=== PATIENT | male | born 1970 | race Caucasian/White ===

== ENCOUNTER 2017-06-15 13:32 | Inpatient (IN) | payer OTHER ==
[~2017-06-15] VITALS: Ht 180.3 cm; Wt 80.0 kg
[2017-06-15 14:41] LABS: Basophils # (auto) 0 uL; Basophils % (auto) 0.2 % (0.0-2.0); CONDITION Y; Eosinophils # (auto) 0 uL; Eosinophils % (auto) 0.3 % (0.0-7.0); Hematocrit 50.1 % (41.0-53.0); Hemoglobin 16.7 g/dL (13.5-17.5); Lymphocytes # (auto) 1.7 uL; Lymphocytes % (auto) 15.5 % (10.0-50.0); Mean Corpuscular Hemoglobin 31.1 pg (28.0-32.0); Mean Corpuscular Hgb Conc. 33.3 g/dL (32.0-36.0); Mean Corpuscular Volume 93.4 fL (80.0-100.0); Mean Platelet Volume 7.8 fL (7.4-10.4); Monocytes # (auto) 0.9 uL; Monocytes % (auto) 8.4 % (0.0-12.0); Neutrophils # (auto) 8.4 uL; Neutrophils % (auto) 75.6 % (37.0-80.0); Platelet Count (auto) 241 10^3/uL (140-450); Red Cell Distribution Width 13.3 % (11.6-16.0); White Blood Cell 11.2 10^3/uL (4.4-10.8)
[2017-06-15 14:43] LABS: Albumin 4.4 g/dL (3.4-5.0); BUN/Creatinine Ratio 15.5; Calcium 9.8 mg/dL (8.5-10.1); Potassium 5.3 mmol/L (3.5-5.1)
[2017-06-15 14:57] LABS: Bilirubin, Total 0.6 mg/dL (0.2-1.0); Total Protein 8.7 g/dL (6.4-8.2)
[2017-06-15] MEDS ORDERED: ALBUTEROL SULF 2.5 MG/0.5ML(0.5%) NEB SOLN NEB ONE (15:00)
[2017-06-15] MEDS ORDERED: MORPHINE SULFATE 4 MG/ML SYRG IV ONE (15:45)
[2017-06-15] MEDS ORDERED: NITROGLYCERIN 0.4 MG SL TAB SL PRN ×2 (15:45)
[2017-06-15] MEDS ORDERED: ACETAMINOPHEN 325 MG TAB PO PRN (15:45)
[2017-06-15] MEDS ORDERED: ONDANSETRON HCL 4 MG/2 ML VIAL IV ONE (15:45)
[2017-06-15] MEDS ORDERED: ONDANSETRON HCL 4 MG/2 ML VIAL IV PRN (15:45)
[2017-06-15] MEDS ORDERED: ALUM & MAG HYDROX-SIMETH LIQ(MAALOX) 30 ML PO ONE (15:45)
[2017-06-15] MEDS ORDERED: ASPirin 81 mg TAB PO ONE ×2 (15:45→17:00)
[2017-06-15] MEDS ORDERED: SODIUM CHLORIDE 0.9% 1,000 ML IV ONE (15:45)
[2017-06-15] MEDS ORDERED: cefTRIAXone 1GM/50ML D5W 50 ML IV ONE (15:45)
[2017-06-15] MEDS ORDERED: LORazepam 0.5 MG TAB PO PRN (15:45)
[2017-06-15] MEDS ORDERED: ZOLPIDEM TARTRATE 5 MG TAB PO PRN (15:45)
[2017-06-15] MEDS ORDERED: MORPHINE SULF INJ 2 MG/ML SYRINGE 1ML IV PRN ×2 (15:45)
[2017-06-15 16:23] LABS: B-Type Natriuretic Peptide 143.23 pg/mL (0-100)
[2017-06-15 16:41] LABS: Temperature: 23.1 C (20.0-25.0)
[2017-06-15] MEDS ORDERED: CLOPIDOGREL BISULFATE 75 MG TAB PO ONE (17:00)
[2017-06-15] MEDS ORDERED: DOCUSATE SOD 100 MG CAP PO ONE (17:00)
[2017-06-15 17:27] VITALS: BP 124/77
[2017-06-15] MEDS: IPRATROPIUM BROM 0.5 MG/2.5ML INH SOL NEB SCH (18:34)
[2017-06-15] MEDS: ALBUTEROL SULF 2.5 MG/0.5ML(0.5%) NEB SOLN NEB SCH (18:35)
[2017-06-15 20:00] VITALS: BP 123/65
[2017-06-15] MEDS: CARVEDILOL 3.125 MG TAB PO SCH (21:57)
[2017-06-15] MEDS: SODIUM CHLOR 0.9% PF (SALINE LOCK) 10ML VIAL IV SCH (21:58)
[2017-06-15] MEDS: ENALAPRIL MALEATE 2.5 MG TAB PO SCH (21:58)
[2017-06-15] MEDS: ATORVASTATIN 20 MG TAB PO SCH (21:58)
[2017-06-15 22:01] VITALS: BP 124/77
[2017-06-15 23:04] VITALS: BP 123/65
[2017-06-16] MEDS: IPRATROPIUM BROM 0.5 MG/2.5ML INH SOL NEB SCH ×4 (01:12→19:36)
[2017-06-16] MEDS: ALBUTEROL SULF 2.5 MG/0.5ML(0.5%) NEB SOLN NEB SCH ×4 (01:12→19:36)
[2017-06-16 05:09] VITALS: BP 108/68
[2017-06-16] MEDS: SODIUM CHLOR 0.9% PF (SALINE LOCK) 10ML VIAL IV SCH ×3 (05:15→22:28)
[2017-06-16 07:00] LABS: Basophils # (auto) 0 uL; Basophils % (auto) 0.3 % (0.0-2.0); CONDITION Y; Eosinophils # (auto) 0.2 uL; Eosinophils % (auto) 1.5 % (0.0-7.0); Hemoglobin 15.3 g/dL (13.5-17.5); Lymphocytes # (auto) 2.5 uL; Lymphocytes % (auto) 24.9 % (10.0-50.0); Mean Corpuscular Hemoglobin 31.7 pg (28.0-32.0); Mean Corpuscular Hgb Conc. 33.9 g/dL (32.0-36.0); Mean Corpuscular Volume 93.4 fL (80.0-100.0); Mean Platelet Volume 7.8 fL (7.4-10.4); Monocytes # (auto) 0.9 uL; Monocytes % (auto) 8.5 % (0.0-12.0); Neutrophils # (auto) 6.5 uL; Neutrophils % (auto) 64.8 % (37.0-80.0); Platelet Count (auto) 220 10^3/uL (140-450); Red Cell Distribution Width 13.6 % (11.6-16.0); White Blood Cell 10.1 10^3/uL (4.4-10.8)
[2017-06-16 07:31] LABS: Albumin 3.6 g/dL (3.4-5.0); BUN/Creatinine Ratio 19.8; Bilirubin, Total 0.6 mg/dL (0.2-1.0); Calcium 8.6 mg/dL (8.5-10.1); Magnesium 2.5 mg/dL (1.6-2.6); Potassium 4.4 mmol/L (3.5-5.1); Total Protein 7.4 g/dL (6.4-8.2)
[2017-06-16 08:30] VITALS: BP 118/69
[2017-06-16] MEDS ORDERED: CLOPIDOGREL BISULFATE 75 MG TAB PO SCH (10:00)
[2017-06-16] MEDS: ENALAPRIL MALEATE 2.5 MG TAB PO SCH ×2 (10:00→22:30)
[2017-06-16] MEDS: CARVEDILOL 3.125 MG TAB PO SCH ×2 (10:00→22:29)
[2017-06-16] MEDS: DOCUSATE SOD 100 MG CAP PO SCH (10:00)
[2017-06-16] MEDS: ASPirin 81 mg TAB PO SCH (10:48)
[2017-06-16] MEDS: cefTRIAXone 1GM/50ML D5W 50 ML IV SCH (10:48)
[2017-06-16 12:30] VITALS: BP 122/59
[2017-06-16 12:32] LABS: Prothrombin Time 10.9 sec (9.37-12.3)
[2017-06-16] MEDS ORDERED: IOHEXOL 350 MG/ML 100ML IJ ONE (13:40)
[2017-06-16] MEDS ORDERED: ENOXAPARIN SOD 100 MG/1 ML SYRINGE SC ONE (15:15)
[2017-06-16] MEDS ORDERED: ENOXAPARIN SOD 80 MG/0.8ML SYRINGE SC SCH (15:15)
[2017-06-16 16:19] VITALS: BP 107/65
[2017-06-16 21:26] VITALS: BP 103/64
[2017-06-16] MEDS: ATORVASTATIN 20 MG TAB PO SCH (22:29)
[2017-06-16] MEDS: ENOXAPARIN SOD 80 MG/0.8ML SYRINGE SC SCH (22:30)
[2017-06-17] MEDS: ALBUTEROL SULF 2.5 MG/0.5ML(0.5%) NEB SOLN NEB SCH ×4 (00:27→18:18)
[2017-06-17] MEDS: IPRATROPIUM BROM 0.5 MG/2.5ML INH SOL NEB SCH ×4 (00:27→18:18)
[2017-06-17 05:00] VITALS: BP 98/67
[2017-06-17] MEDS: SODIUM CHLOR 0.9% PF (SALINE LOCK) 10ML VIAL IV SCH ×3 (06:06→22:20)
[2017-06-17 07:03] LABS: Partial Thromboplastin Time 31.7 sec (22.64-33.71); Prothrombin Time 10.9 sec (9.37-12.3)
[2017-06-17] MEDS ORDERED: LIDOCAINE 2%HCL (LOCAL ANESTH.) INJ 20ML MDV ONE (07:27)
[2017-06-17] MEDS ORDERED: IODIXANOL 320MG/ML 100ML BTL IV ONE (07:27)
[2017-06-17] MEDS ORDERED: HEPARIN IN NS 1000Units/500mL 0 ML ONE ×2 (07:27→07:31)
[2017-06-17 08:00] VITALS: BP 120/71
[2017-06-17 09:00] VITALS: BP 120/71
[2017-06-17] MEDS: NICOTINE 21MG/24 HR TOPICAL PATCH TD SCH (10:00)
[2017-06-17] MEDS: CARVEDILOL 3.125 MG TAB PO SCH ×2 (10:00→22:21)
[2017-06-17] MEDS: ENALAPRIL MALEATE 2.5 MG TAB PO SCH ×2 (10:00→22:00)
[2017-06-17] MEDS: cefTRIAXone 1GM/50ML D5W 50 ML IV SCH (10:37)
[2017-06-17] MEDS: DOCUSATE SOD 100 MG CAP PO SCH (10:38)
[2017-06-17] MEDS: ASPirin 81 mg TAB PO SCH (10:38)
[2017-06-17] MEDS: ENOXAPARIN SOD 80 MG/0.8ML SYRINGE SC SCH ×2 (10:56→22:21)
[2017-06-17 12:45] VITALS: BP 109/68
[2017-06-17 17:08] VITALS: BP 115/68
[2017-06-17 20:00] VITALS: BP 114/66
[2017-06-17] MEDS: ATORVASTATIN 20 MG TAB PO SCH (22:21)
[2017-06-18] VITALS (7 sets, daily range): BP systolic 94–112; BP diastolic 60–68
[2017-06-18] MEDS: IPRATROPIUM BROM 0.5 MG/2.5ML INH SOL NEB SCH ×4 (06:43→18:21)
[2017-06-18] MEDS: ALBUTEROL SULF 2.5 MG/0.5ML(0.5%) NEB SOLN NEB SCH ×4 (06:43→18:21)
[2017-06-18] MEDS: SODIUM CHLOR 0.9% PF (SALINE LOCK) 10ML VIAL IV SCH ×3 (07:31→21:53)
[2017-06-18] MEDS: cefTRIAXone 1GM/50ML D5W 50 ML IV SCH (08:42)
[2017-06-18 09:07] LABS: Protein S Antigen Free 83 % (57-157); Proten S Antigen Total 125 % (60-150)
[2017-06-18] MEDS: ASPirin 81 mg TAB PO SCH (09:51)
[2017-06-18] MEDS: DOCUSATE SOD 100 MG CAP PO SCH (09:51)
[2017-06-18] MEDS: ENOXAPARIN SOD 80 MG/0.8ML SYRINGE SC SCH (09:51)
[2017-06-18] MEDS: CARVEDILOL 3.125 MG TAB PO SCH ×2 (09:54→21:53)
[2017-06-18] MEDS: ENALAPRIL MALEATE 2.5 MG TAB PO SCH ×2 (09:55→21:11)
[2017-06-18] MEDS: NICOTINE 21MG/24 HR TOPICAL PATCH TD SCH (10:00)
[2017-06-18] MEDS ORDERED: APIXABAN 5 MG TAB PO SCH (10:30)
[2017-06-18] MEDS ORDERED: IOHEXOL 350 MG/ML 100ML IJ ONE (15:01)
[2017-06-18 16:11] LABS: Basophils # (auto) 0.1 uL; Basophils % (auto) 0.8 % (0.0-2.0); CONDITION Y; Eosinophils # (auto) 0.1 uL; Hematocrit 41.8 % (41.0-53.0); Hemoglobin 14.4 g/dL (13.5-17.5); Lymphocytes # (auto) 1.4 uL; Lymphocytes % (auto) 14.9 % (10.0-50.0); Mean Corpuscular Hemoglobin 31.6 pg (28.0-32.0); Mean Corpuscular Hgb Conc. 34.4 g/dL (32.0-36.0); Mean Platelet Volume 7.6 fL (7.4-10.4); Monocytes # (auto) 0.5 uL; Monocytes % (auto) 5.8 % (0.0-12.0); Neutrophils # (auto) 7.2 uL; Neutrophils % (auto) 77.5 % (37.0-80.0); Platelet Count (auto) 272 10^3/uL (140-450); Red Cell Distribution Width 13.4 % (11.6-16.0); White Blood Cell 9.2 10^3/uL (4.4-10.8)
[2017-06-18 16:29] LABS: Albumin 3.6 g/dL (3.4-5.0); BUN/Creatinine Ratio 16.1; Bilirubin, Total 0.4 mg/dL (0.2-1.0); Calcium 9.2 mg/dL (8.5-10.1); Potassium 4.1 mmol/L (3.5-5.1); Total Protein 7.7 g/dL (6.4-8.2)
[2017-06-18 16:36] LABS: INR 1.02 (0.9-1.15); Prothrombin Time 11.1 sec (9.37-12.3)
[2017-06-18] MEDS ORDERED: HEPARIN SODIUM (PORCINE) 5000 UNITS/ML 1ML VIAL IV ONE (18:45)
[2017-06-18 19:55] LABS: Basophils # (auto) 0 uL; Basophils % (auto) 0.3 % (0.0-2.0); CONDITION Y; Eosinophils # (auto) 0.1 uL; Eosinophils % (auto) 0.7 % (0.0-7.0); Hematocrit 41.8 % (41.0-53.0); Hemoglobin 14.3 g/dL (13.5-17.5); Lymphocytes # (auto) 1.5 uL; Mean Corpuscular Hemoglobin 31.6 pg (28.0-32.0); Mean Corpuscular Hgb Conc. 34.2 g/dL (32.0-36.0); Mean Corpuscular Volume 92.5 fL (80.0-100.0); Mean Platelet Volume 7.7 fL (7.4-10.4); Monocytes # (auto) 0.6 uL; Neutrophils # (auto) 10.4 uL; Platelet Count (auto) 294 10^3/uL (140-450); Red Cell Distribution Width 13.3 % (11.6-16.0); White Blood Cell 12.7 10^3/uL (4.4-10.8)
[2017-06-18 20:10] LABS: INR 0.99 (0.9-1.15); Partial Thromboplastin Time 31.6 sec (22.64-33.71); Prothrombin Time 10.8 sec (9.37-12.3)
[2017-06-18] MEDS: HEPARIN DRIP/D5W 100UNITS/ML 250 ML IV SCH (20:10)
[2017-06-18] MEDS: ATORVASTATIN 20 MG TAB PO SCH (21:52)
[2017-06-19] VITALS (7 sets, daily range): BP systolic 105–118; BP diastolic 61–73
[2017-06-19 03:14] LABS: INR 0.98 (0.9-1.15); Partial Thromboplastin Time 49.6 sec (22.64-33.71); Prothrombin Time 10.7 sec (9.37-12.3)
[2017-06-19] MEDS: SODIUM CHLOR 0.9% PF (SALINE LOCK) 10ML VIAL IV SCH ×3 (06:04→22:28)
[2017-06-19] MEDS: ALBUTEROL SULF 2.5 MG/0.5ML(0.5%) NEB SOLN NEB SCH ×4 (06:07→20:03)
[2017-06-19] MEDS: IPRATROPIUM BROM 0.5 MG/2.5ML INH SOL NEB SCH ×4 (06:08→20:03)
[2017-06-19 08:39] LABS: INR 1.01 (0.9-1.15); Partial Thromboplastin Time 38.1 sec (22.64-33.71)
[2017-06-19] MEDS: ENALAPRIL MALEATE 2.5 MG TAB PO SCH ×2 (10:00→22:30)
[2017-06-19] MEDS: CARVEDILOL 3.125 MG TAB PO SCH ×2 (10:00→22:30)
[2017-06-19] MEDS: NICOTINE 21MG/24 HR TOPICAL PATCH TD SCH (10:00)
[2017-06-19] MEDS: DOCUSATE SOD 100 MG CAP PO SCH (10:00)
[2017-06-19] MEDS: ASPirin 81 mg TAB PO SCH (10:38)
[2017-06-19] MEDS: cefTRIAXone 1GM/50ML D5W 50 ML IV SCH (10:39)
[2017-06-19] MEDS: HEPARIN DRIP/D5W 100UNITS/ML 250 ML IV SCH (12:55)
[2017-06-19 15:29] LABS: Basophils # (auto) 0 uL; Basophils % (auto) 0.5 % (0.0-2.0); CONDITION Y; Eosinophils # (auto) 0.2 uL; Eosinophils % (auto) 1.5 % (0.0-7.0); Hematocrit 41.2 % (41.0-53.0); Hemoglobin 14.1 g/dL (13.5-17.5); Lymphocytes # (auto) 1.9 uL; Lymphocytes % (auto) 18.2 % (10.0-50.0); Mean Corpuscular Hemoglobin 31.8 pg (28.0-32.0); Mean Corpuscular Hgb Conc. 34.2 g/dL (32.0-36.0); Mean Corpuscular Volume 93.1 fL (80.0-100.0); Mean Platelet Volume 7.6 fL (7.4-10.4); Monocytes # (auto) 0.9 uL; Monocytes % (auto) 8.5 % (0.0-12.0); Neutrophils # (auto) 7.3 uL; Neutrophils % (auto) 71.3 % (37.0-80.0); Platelet Count (auto) 309 10^3/uL (140-450); Red Cell Distribution Width 13.2 % (11.6-16.0); White Blood Cell 10.3 10^3/uL (4.4-10.8)
[2017-06-19 15:46] LABS: INR 0.99 (0.9-1.15); Partial Thromboplastin Time 47.8 sec (22.64-33.71); Prothrombin Time 10.8 sec (9.37-12.3)
[2017-06-19] MEDS: ATORVASTATIN 20 MG TAB PO SCH (22:28)
[2017-06-20] VITALS (7 sets, daily range): BP systolic 100–109; BP diastolic 58–73
[2017-06-20] MEDS: HEPARIN DRIP/D5W 100UNITS/ML 250 ML IV SCH ×2 (05:41→22:17)
[2017-06-20] MEDS: IPRATROPIUM BROM 0.5 MG/2.5ML INH SOL NEB SCH ×4 (05:58→19:42)
[2017-06-20] MEDS: ALBUTEROL SULF 2.5 MG/0.5ML(0.5%) NEB SOLN NEB SCH ×4 (05:59→19:42)
[2017-06-20] MEDS: SODIUM CHLOR 0.9% PF (SALINE LOCK) 10ML VIAL IV SCH ×3 (05:59→22:05)
[2017-06-20] MEDS: cefTRIAXone 1GM/50ML D5W 50 ML IV SCH (08:20)
[2017-06-20] MEDS: DOCUSATE SOD 100 MG CAP PO SCH (09:06)
[2017-06-20] MEDS: NICOTINE 21MG/24 HR TOPICAL PATCH TD SCH ×2 (09:06→09:13)
[2017-06-20] MEDS: CARVEDILOL 3.125 MG TAB PO SCH ×2 (09:06→22:00)
[2017-06-20] MEDS: ASPirin 81 mg TAB PO SCH (09:06)
[2017-06-20] MEDS: ENALAPRIL MALEATE 2.5 MG TAB PO SCH ×2 (09:07→22:00)
[2017-06-20 10:01] LABS: Basophils # (auto) 0 uL; Basophils % (auto) 0.4 % (0.0-2.0); CONDITION Y; Eosinophils # (auto) 0.1 uL; Eosinophils % (auto) 1.2 % (0.0-7.0); Hemoglobin 14.6 g/dL (13.5-17.5); Lymphocytes # (auto) 1.4 uL; Lymphocytes % (auto) 14.8 % (10.0-50.0); Mean Corpuscular Hemoglobin 31.9 pg (28.0-32.0); Mean Corpuscular Hgb Conc. 34.1 g/dL (32.0-36.0); Mean Corpuscular Volume 93.6 fL (80.0-100.0); Mean Platelet Volume 7.5 fL (7.4-10.4); Monocytes # (auto) 0.5 uL; Monocytes % (auto) 5.6 % (0.0-12.0); Neutrophils # (auto) 7.4 uL; Platelet Count (auto) 318 10^3/uL (140-450); Red Cell Distribution Width 13.1 % (11.6-16.0); White Blood Cell 9.5 10^3/uL (4.4-10.8)
[2017-06-20 10:18] LABS: INR 1.01 (0.9-1.15); Partial Thromboplastin Time 56.8 sec (22.64-33.71)
[2017-06-20] MEDS: ATORVASTATIN 20 MG TAB PO SCH (22:07)
[2017-06-21] VITALS (7 sets, daily range): BP systolic 103–116; BP diastolic 56–68
[2017-06-21] MEDS: ALBUTEROL SULF 2.5 MG/0.5ML(0.5%) NEB SOLN NEB SCH ×4 (01:29→18:00)
[2017-06-21] MEDS: IPRATROPIUM BROM 0.5 MG/2.5ML INH SOL NEB SCH ×4 (01:29→18:00)
[2017-06-21] MEDS: SODIUM CHLOR 0.9% PF (SALINE LOCK) 10ML VIAL IV SCH ×3 (05:39→22:03)
[2017-06-21 05:48] LABS: Basophils # (auto) 0.1 uL; Basophils % (auto) 0.8 % (0.0-2.0); CONDITION Y; Eosinophils # (auto) 0.2 uL; Eosinophils % (auto) 2.1 % (0.0-7.0); Hemoglobin 14.5 g/dL (13.5-17.5); Lymphocytes # (auto) 2.5 uL; Lymphocytes % (auto) 26.5 % (10.0-50.0); Mean Corpuscular Hgb Conc. 34.5 g/dL (32.0-36.0); Mean Corpuscular Volume 92.7 fL (80.0-100.0); Mean Platelet Volume 7.5 fL (7.4-10.4); Monocytes # (auto) 0.7 uL; Neutrophils % (auto) 63.6 % (37.0-80.0); Platelet Count (auto) 340 10^3/uL (140-450); Red Cell Distribution Width 12.9 % (11.6-16.0); White Blood Cell 9.4 10^3/uL (4.4-10.8)
[2017-06-21 06:02] LABS: INR 0.98 (0.9-1.15); Partial Thromboplastin Time 64.6 sec (22.64-33.71); Prothrombin Time 10.7 sec (9.37-12.3)
[2017-06-21] MEDS: cefTRIAXone 1GM/50ML D5W 50 ML IV SCH (07:56)
[2017-06-21] MEDS: CARVEDILOL 3.125 MG TAB PO SCH ×2 (09:05→22:00)
[2017-06-21] MEDS: ASPirin 81 mg TAB PO SCH (09:05)
[2017-06-21] MEDS: ENALAPRIL MALEATE 2.5 MG TAB PO SCH ×2 (09:05→22:00)
[2017-06-21] MEDS: NICOTINE 21MG/24 HR TOPICAL PATCH TD SCH (09:06)
[2017-06-21] MEDS: DOCUSATE SOD 100 MG CAP PO SCH (09:06)
[2017-06-21] MEDS: HEPARIN DRIP/D5W 100UNITS/ML 250 ML IV SCH (12:39)
[2017-06-21] MEDS: ATORVASTATIN 20 MG TAB PO SCH (22:08)
[2017-06-22] VITALS (7 sets, daily range): BP systolic 104–121; BP diastolic 56–81
[2017-06-22] MEDS: SODIUM CHLOR 0.9% PF (SALINE LOCK) 10ML VIAL IV SCH ×3 (06:00→21:55)
[2017-06-22 06:31] LABS: INR 0.99 (0.9-1.15); Partial Thromboplastin Time 29.5 sec (22.64-33.71); Prothrombin Time 10.8 sec (9.37-12.3)
[2017-06-22] MEDS: IPRATROPIUM BROM 0.5 MG/2.5ML INH SOL NEB SCH ×4 (06:36→18:22)
[2017-06-22] MEDS: ALBUTEROL SULF 2.5 MG/0.5ML(0.5%) NEB SOLN NEB SCH ×4 (06:36→18:22)
[2017-06-22] MEDS: cefTRIAXone 1GM/50ML D5W 50 ML IV SCH (08:14)
[2017-06-22] MEDS ORDERED: HEPARIN SODIUM (PORCINE) 5000 UNITS/ML 1ML VIAL IV ONE (08:15)
[2017-06-22] MEDS: HEPARIN DRIP/D5W 100UNITS/ML 250 ML IV SCH (08:16)
[2017-06-22] MEDS: ENALAPRIL MALEATE 2.5 MG TAB PO SCH ×2 (09:23→21:55)
[2017-06-22] MEDS: NICOTINE 21MG/24 HR TOPICAL PATCH TD SCH (09:23)
[2017-06-22] MEDS: CARVEDILOL 3.125 MG TAB PO SCH ×2 (09:47→21:56)
[2017-06-22] MEDS: ASPirin 81 mg TAB PO SCH (09:48)
[2017-06-22] MEDS: DOCUSATE SOD 100 MG CAP PO SCH (09:48)
[2017-06-22 14:55] LABS: INR 1.05 (0.9-1.15); Prothrombin Time 11.5 sec (9.37-12.3)
[2017-06-22] MEDS ORDERED: HEPARIN DRIP/D5W 100UNITS/ML 250 ML IV SCH (18:45)
[2017-06-22] MEDS: ATORVASTATIN 20 MG TAB PO SCH (21:55)
[2017-06-23] MEDS: IPRATROPIUM BROM 0.5 MG/2.5ML INH SOL NEB SCH ×4 (00:15→19:35)
[2017-06-23] MEDS: ALBUTEROL SULF 2.5 MG/0.5ML(0.5%) NEB SOLN NEB SCH ×4 (00:15→19:35)
[2017-06-23 05:18] VITALS: BP 111/64
[2017-06-23] MEDS: SODIUM CHLOR 0.9% PF (SALINE LOCK) 10ML VIAL IV SCH ×3 (05:31→21:41)
[2017-06-23 05:38] LABS: Basophils # (auto) 0.1 uL; CONDITION Y; Eosinophils # (auto) 0.2 uL; Eosinophils % (auto) 2.6 % (0.0-7.0); Hematocrit 42.3 % (41.0-53.0); Hemoglobin 14.3 g/dL (13.5-17.5); Lymphocytes % (auto) 25.7 % (10.0-50.0); Mean Corpuscular Hemoglobin 31.6 pg (28.0-32.0); Mean Corpuscular Hgb Conc. 33.8 g/dL (32.0-36.0); Mean Corpuscular Volume 93.3 fL (80.0-100.0); Mean Platelet Volume 7.2 fL (7.4-10.4); Monocytes # (auto) 0.5 uL; Monocytes % (auto) 6.1 % (0.0-12.0); Neutrophils # (auto) 5.1 uL; Neutrophils % (auto) 64.6 % (37.0-80.0); Platelet Count (auto) 403 10^3/uL (140-450); Red Cell Distribution Width 13.2 % (11.6-16.0)
[2017-06-23 05:57] LABS: INR 1.04 (0.9-1.15); Prothrombin Time 11.3 sec (9.37-12.3)
[2017-06-23 06:08] LABS: Partial Thromboplastin Time 82.1 sec (22.64-33.71)
[2017-06-23] MEDS ORDERED: HEPARIN DRIP/D5W 100UNITS/ML 250 ML IV SCH (08:15)
[2017-06-23 09:41] VITALS: BP 99/56
[2017-06-23] MEDS: ENALAPRIL MALEATE 2.5 MG TAB PO SCH ×2 (10:00→21:36)
[2017-06-23] MEDS: CARVEDILOL 3.125 MG TAB PO SCH ×2 (10:00→21:36)
[2017-06-23] MEDS: DOCUSATE SOD 100 MG CAP PO SCH (10:16)
[2017-06-23] MEDS: NICOTINE 21MG/24 HR TOPICAL PATCH TD SCH (10:18)
[2017-06-23] MEDS: ASPirin 81 mg TAB PO SCH (10:18)
[2017-06-23 12:17] LABS: INR 1.02 (0.9-1.15); Partial Thromboplastin Time 60.2 sec (22.64-33.71); Prothrombin Time 11.1 sec (9.37-12.3)
[2017-06-23 12:46] VITALS: BP 102/62
[2017-06-23] MEDS ORDERED: APIXABAN 5 MG TAB PO SCH (15:55)
[2017-06-23 18:05] VITALS: BP 104/65
[2017-06-23 20:00] VITALS: BP 105/65
[2017-06-23] MEDS: APIXABAN 5 MG TAB PO SCH (21:41)
[2017-06-23] MEDS: ATORVASTATIN 20 MG TAB PO SCH (21:41)
[2017-06-23 22:00] VITALS: BP 105/65
[2017-06-24] MEDS: ALBUTEROL SULF 2.5 MG/0.5ML(0.5%) NEB SOLN NEB SCH ×4 (00:38→19:14)
[2017-06-24] MEDS: IPRATROPIUM BROM 0.5 MG/2.5ML INH SOL NEB SCH ×4 (00:38→19:14)
[2017-06-24 04:53] VITALS: BP 108/62
[2017-06-24] MEDS: SODIUM CHLOR 0.9% PF (SALINE LOCK) 10ML VIAL IV SCH ×3 (05:33→21:35)
[2017-06-24 08:36] VITALS: BP 111/61
[2017-06-24 08:48] LABS: INR 1.1 (0.9-1.15); Partial Thromboplastin Time 31.6 sec (22.64-33.71)
[2017-06-24] MEDS: ENALAPRIL MALEATE 2.5 MG TAB PO SCH ×3 (10:00→21:35)
[2017-06-24] MEDS: CARVEDILOL 3.125 MG TAB PO SCH ×3 (10:00→21:34)
[2017-06-24] MEDS: NICOTINE 21MG/24 HR TOPICAL PATCH TD SCH (10:00)
[2017-06-24] MEDS: DOCUSATE SOD 100 MG CAP PO SCH (10:23)
[2017-06-24] MEDS: APIXABAN 5 MG TAB PO SCH ×2 (10:24→21:35)
[2017-06-24] MEDS: ASPirin 81 mg TAB PO SCH (10:25)
[2017-06-24 12:54] VITALS: BP 98/61
[2017-06-24 17:00] VITALS: BP_SYST 103; BP_SYST 126; BP_DIAS 59; BP_DIAS 62
[2017-06-24] MEDS: ATORVASTATIN 20 MG TAB PO SCH (21:33)
[2017-06-24 22:20] VITALS: BP 119/59
[2017-06-25] VITALS (7 sets, daily range): BP systolic 100–119; BP diastolic 51–67
[2017-06-25] MEDS: IPRATROPIUM BROM 0.5 MG/2.5ML INH SOL NEB SCH ×4 (00:53→19:05)
[2017-06-25] MEDS: ALBUTEROL SULF 2.5 MG/0.5ML(0.5%) NEB SOLN NEB SCH ×4 (00:53→19:05)
[2017-06-25 06:17] LABS: Basophils # (auto) 0.1 uL; Basophils % (auto) 0.6 % (0.0-2.0); CONDITION Y; Eosinophils # (auto) 0.3 uL; Eosinophils % (auto) 3.1 % (0.0-7.0); Hematocrit 42.7 % (41.0-53.0); Hemoglobin 14.5 g/dL (13.5-17.5); Lymphocytes # (auto) 2.2 uL; Lymphocytes % (auto) 27.7 % (10.0-50.0); Mean Corpuscular Hemoglobin 31.8 pg (28.0-32.0); Mean Corpuscular Hgb Conc. 33.9 g/dL (32.0-36.0); Mean Corpuscular Volume 93.6 fL (80.0-100.0); Mean Platelet Volume 7.3 fL (7.4-10.4); Monocytes # (auto) 0.5 uL; Monocytes % (auto) 5.8 % (0.0-12.0); Neutrophils # (auto) 5.1 uL; Neutrophils % (auto) 62.8 % (37.0-80.0); Platelet Count (auto) 452 10^3/uL (140-450); Red Cell Distribution Width 13.1 % (11.6-16.0); White Blood Cell 8.1 10^3/uL (4.4-10.8)
[2017-06-25 07:03] LABS: Albumin 3.8 g/dL (3.4-5.0); BUN/Creatinine Ratio 15.1; Bilirubin, Total 0.2 mg/dL (0.2-1.0); Calcium 9.5 mg/dL (8.5-10.1); Potassium 4.2 mmol/L (3.5-5.1); Total Protein 7.9 g/dL (6.4-8.2)
[2017-06-25] MEDS: SODIUM CHLOR 0.9% PF (SALINE LOCK) 10ML VIAL IV SCH ×3 (07:06→21:24)
[2017-06-25] MEDS ORDERED: FLUMAZENIL 0.1 MG/ML INJ 10ML MDV IV ONE (07:24)
[2017-06-25] MEDS ORDERED: LIDOCAINE VISCOUS 2% 15ML UD ONE (07:24)
[2017-06-25] MEDS ORDERED: NALOXONE HCL 0.4 MG/ML VIAL ONE (07:27)
[2017-06-25] MEDS ORDERED: MIDAZOLAM HCL 1MG/1ML-2 ML VIAL IV ONE (09:00)
[2017-06-25] MEDS ORDERED: fentaNYL CITRATE 100 MCG/2 ML VL IV ONE (09:00)
[2017-06-25] MEDS ORDERED: LIDOCAINE VISCOUS 2% 15ML UD PO ONE (09:00)
[2017-06-25] MEDS ORDERED: MIDAZOLAM HCL 1MG/1ML-2 ML VIAL ONE (09:11)
[2017-06-25] MEDS ORDERED: fentaNYL CITRATE 100 MCG/2 ML VL ONE (09:12)
[2017-06-25] MEDS: CARVEDILOL 3.125 MG TAB PO SCH ×2 (10:00→21:25)
[2017-06-25] MEDS: ENALAPRIL MALEATE 2.5 MG TAB PO SCH ×2 (10:00→21:25)
[2017-06-25] MEDS: NICOTINE 21MG/24 HR TOPICAL PATCH TD SCH ×2 (10:00→12:15)
[2017-06-25] MEDS: DOCUSATE SOD 100 MG CAP PO SCH (10:00)
[2017-06-25] MEDS: ASPirin 81 mg TAB PO SCH (10:00)
[2017-06-25] MEDS: APIXABAN 5 MG TAB PO SCH ×2 (12:16→21:25)
[2017-06-25 17:07] LABS: Sjogren's Anti-SS-A Antibody <0.2 AI (0.0-0.9)
[2017-06-25] MEDS: ATORVASTATIN 20 MG TAB PO SCH (21:25)
[2017-06-26] MEDS: ALBUTEROL SULF 2.5 MG/0.5ML(0.5%) NEB SOLN NEB SCH ×3 (01:05→13:05)
[2017-06-26] MEDS: IPRATROPIUM BROM 0.5 MG/2.5ML INH SOL NEB SCH ×3 (01:07→13:05)
[2017-06-26 05:11] VITALS: BP 114/72
[2017-06-26 05:41] LABS: Urine Bilirubin Negative (Negative); Urine Blood Negative /uL (Negative); Urine Color Yellow (Yellow); Urine Glucose Normal (Normal); Urine Ketone Negative (Negative); Urine Nitrite Negative (Negative); Urine RBC <1 /hpf (0 - 3); Urine Urobilinogen Normal (Negative); Urine pH 6.5 (5.0-8.0)
[2017-06-26] MEDS: SODIUM CHLOR 0.9% PF (SALINE LOCK) 10ML VIAL IV SCH ×2 (05:45→13:42)
[2017-06-26 08:25] VITALS: BP 116/68
[2017-06-26 09:09] LABS: Protein S Antigen Free 137 % (57-157); Proten S Antigen Total 139 % (60-150)
[2017-06-26] MEDS: ENALAPRIL MALEATE 2.5 MG TAB PO SCH (10:00)
[2017-06-26] MEDS: CARVEDILOL 3.125 MG TAB PO SCH (10:00)
[2017-06-26] MEDS: NICOTINE 21MG/24 HR TOPICAL PATCH TD SCH (10:00)
[2017-06-26] MEDS: DOCUSATE SOD 100 MG CAP PO SCH (10:22)
[2017-06-26] MEDS: APIXABAN 5 MG TAB PO SCH (10:22)
[2017-06-26] MEDS: ASPirin 81 mg TAB PO SCH (10:22)
[2017-06-26 12:30] VITALS: BP 111/63
[2017-06-26 16:57] VITALS: BP 111/63
[2017-07-01] MEDS ORDERED: APIXABAN 5 MG TAB PO SCH (10:00)
== END 2017-06-26 17:25 | disposition short-term general hospital (02) | DRG 190 ==
LOC: ER 13:32 → TELE 13:33 → TELE-E-ADS 17:30 → TELE-WESTW 18:15
PROVIDERS: ADMIT Internal Medicine; ATTEND Internal Medicine Pulmonary Disease
PROC: B246ZZ4 Ultrasonography of Right and Left Heart, Transesophageal (ICD-10-PCS; principal; 2017-06-25)
DX: I21.4 Non-ST elevation (NSTEMI) myocardial infarction (principal); I26.99 Other pulmonary embolism without acute cor pulmonale; I74.3 Embolism and thrombosis of arteries of the lower extremities; I27.2 Other secondary pulmonary hypertension; D68.59 Other primary thrombophilia; I82.411 Acute embolism and thrombosis of right femoral vein; N18.3 Chronic kidney disease, stage 3 (moderate); E87.5 Hyperkalemia; J44.0 Chronic obstructive pulmonary disease with (acute) lower respiratory infection; I82.431 Acute embolism and thrombosis of right popliteal vein; J20.9 Acute bronchitis, unspecified; Z86.711 Personal history of pulmonary embolism; Z86.718 Personal history of other venous thrombosis and embolism; F12.10 Cannabis abuse, uncomplicated; I25.2 Old myocardial infarction
CPT/HCPCS: 36415; 71020; 71275; 75635; 80053; 80061; 80307; 81001; 81241; 83516; 83735; 83880; 84443; 84484; 85025; 85301; 85302; 85305; 85306; 85379; 85610; 85613; 85670; 85705; 85730; 85732; 86141; 86225; 86235; 93005; 93306; 93312; 93970; 94640; 96365; 99291; J0696; J2250; J2405; Q9967